=== PATIENT | female | born 1985 | race Caucasian/White ===

== ENCOUNTER → 2020-01-04 | Day surgery (SDC) | payer BC ==
[~2020-01-04] MED LIST: BUPROPION HCL150 M1 PO; CLONAZEPAM 0.50.5 M1 PO; LUNESTA3 MG PO; MELOXICAM15 MG PO; NEURONTIN100 MG PO; NORCO 5-325 TA1 EAC1 PO; OMEPRAZOLE40 MG PO; ZOFRAN8 MG PO
[2020-01-04 07:51] LABS: HEMATOCRIT 37.9 % (37.0-47.0); HEMOGLOBIN 13.3 gm/dL (12.0-15.0)
[2020-01-04 07:58] LABS: CREATININE 0.9 mg/dL (0.6-1.3); POTASSIUM 3.4 mmol/L (3.5-5.1)
[2020-01-04 08:03] LABS: ALBUMIN 3.9 g/dL (3.4-5.0); TOTAL PROTEIN 7.6 g/dL (6.4-8.2)
--- NOTE | 2020-01-06 12:07 | PATH ---
[address] [address] PATHOLOGY RPT PROCEDURE Name: ADORE HAYES [id number] Ad[facility]: 01/04/20 Date of : 83 Discharge: Report #: [id number] Path Case #: [id number] [facility] Accession Number: [id number] . 01 Material submitted: . gallbladder - GALLBLADDER . 01 Clinical history: . Right upper quadrant pain . 02 Diagnosis: Gallbladder: - Chronic cholecystitis and cholelithiasis with benign sentinel lymph node showing well-formed granulomata. See comment. (BATSHEVA:christina; 01/05/2020) [facility] 01/05/2020 1524 Local . 02 Comment: The prominent lymph node shows multiple "tight", well-formed granulomata noted to have multinucleated giant cells and they do not have the appearance of those typically seen with a lipophagic reaction but instead raise the possibility of an infectious etiology or sarcoidosis. No birefringent foreign material is seen when examined under cross polarized microscopy. Properly controlled Kinyouns and GMS stains are negative for mycobacterial and fungal organisms. (BATSHEVA:christina; 01/05/2020) . Special stains: Kinyouns and GMS . 02 Electronically signed: . Jonn Gross MD, Pathologist NPI- [id number] . 01 Gross description: . The specimen is received in formalin, labeled "Adore Hayes, gallbladder" and consists of an intact purple gallbladder measuring 5.2 x 1.9 x 1.6 cm. The margin is inked. Opening reveals green bile and minute fragments of black calculi measuring up to 0.2 cm in diameter. The mucosa is green and granular with a wall thickness of 0.1 cm. No gross lesions are identified. A possible lymph node is identified. [facility] sections are submitted in A1. ([facility]; 01/04/2020) JFQ/JFQ 01/04/2020 170 Local . 02 Pathologist provided ICD-10: K80.10 . 02 [place] [address] PATHOLOGY RPT PROCEDURE Name: ADORE HAYES Room: [facility]#: [id number] Admission: 01/04/20 Date of : 83 Discharge: Report #: [id number] Path Case #: [id number] Specimen Comment: A courtesy copy of this report has been sent to [phone] Specimen Comment: [phone] Specimen Comment: Report sent to / DR ALVAREZ Performed at: [address], [place], [place] [id number] MD Luis Lynne MD Phone: [phone] Performed at: 02 [facility] [address], [place], [place] [id number] MD Jonn Gross MD Phone: [phone]
--- NOTE | 2020-01-07 13:17 | OP ---
[facility] [address] [place] [address] OPERATIVE REPORT Name: ADORE HAYES Room: [facility]#: [id number] Admission: 01/04/20 Attend Phys: Nehemias Huerta Discharge: Date of : 83 Report #: [id number] THIS REPORT FOR: //name// cc: Polo Iniguez Robin L. FNP THIS REPORT FOR: //name// CC: Nehemias Iniguez DATE OF SERVICE: 01/04/2020 PREOPERATIVE DIAGNOSES: Chronic cholecystitis and gallbladder polyp. POSTOPERATIVE DIAGNOSES: Chronic cholecystitis and gallbladder polyp. OPERATION: Laparoscopic cholecystectomy. SURGEON: Nehemias Huerta MD ANESTHESIA: General. ESTIMATED BLOOD LOSS: Minimal. SPECIMEN: Gallbladder. DESCRIPTION OF PROCEDURE: After informed consent was obtained, the patient was brought to the operating room and placed supine. SCDs were placed and working, preoperative antibiotics were administered, general anesthesia was induced. The abdomen was prepped and draped in the usual sterile fashion. A 10 mm incision was made below the umbilicus. Fascia was incised and a trocar was placed. Pneumoperitoneum was established. Three right upper quadrant 5 mm ports were placed. Gallbladder was grasped at the fundus and retracted cephalad. Infundibulum was grasped and retracted laterally. I dissected out the cystic duct and cystic artery. The cystic duct and artery were fully identified. The cystic plate was identified. Cystic duct and artery were clipped and ligated leaving 2 clips on the remaining duct and 1 on the remaining artery. Gallbladder was then taken off the liver bed with electrocautery. It was placed into an Endopouch and removed. The fascia was then closed with a [id number] 0 Vicryl. Skin was closed with 4-0 Monocryl. Incisions were sealed with Dermabond. COMPLICATIONS: [place] [address] OPERATIVE REPORT Name: ADORE HAYES Room: [facility]#: [id number] Admission: 01/04/20 Attend Phys: Nehemias Huerta Discharge: Date of : 83 Report #: [id number] DISPOSITION: The patient was taken to recovery in satisfactory condition. <ELECTRONICALLY SIGNED> By: Nehemias Huerta MD 01/07/20 1317 1028 [id number] Huerta MD /nt
== END | disposition home or self-care (01) ==
LOC: M.SUR 07:16
PROVIDERS: ATTEND Surgery
DX: K80.10 Calculus of gallbladder with chronic cholecystitis without obstruction (principal); I89.8 Other specified noninfective disorders of lymphatic vessels and lymph nodes; J45.909 Unspecified asthma, uncomplicated; Z98.890 Other specified postprocedural states; Z11.59 Encounter for screening for other viral diseases; Z79.899 Other long term (current) drug therapy